=== PATIENT | male | born 1960 | race African-American/Black ===

== ENCOUNTER 2017-03-01 16:30 | Emergency (ER) | payer MEDICAID ==
[~2017-03-01] VITALS: Ht 182.9 cm; Wt 71.0 kg
[~2017-03-01 16:30] MED LIST: CARBAMAZEPINE
[2017-03-01] MEDS ORDERED: MORPHINE SULFATE 4 MG/ML CPJ (NOT FOR IM USE) IV STA (17:08)
[2017-03-01 17:15] VITALS: BP 122/70
[2017-03-01 17:51] LABS: BASOPHILS % 0.7 % (0.0-2.0); EOSINOPHILS % 2.7 % (0.0-5.0); HEMATOCRIT. 39.9 % (42.0-52.0); HEMOGLOBIN. 13.8 g/dL (14.0-18.0); LYMPHOCYTES % 37.7 % (20.0-50.0); MEAN CORPUSCULAR HEMOGLOBIN 29.5 pg (28.0-32.0); MEAN CORPUSCULAR VOLUME 85.3 fL (80.0-94.0); MEAN PLATELET VOLUME 9.2 fl (7.4-10.4); MONOCYTES % 7.9 % (2.0-8.0); PLATELET 277 x1000/uL (130-400); RED BLOOD CELL COUNT 4.68 mill/uL (4.7-6.1); RED CELL DISTRIBUTION WIDTH 14.4 % (11.6-14.6)
[2017-03-01 18:05] LABS: CARBON DIOXIDE 24 mEq/L (21-32); CHLORIDE 104 mEq/L (98-107)
[2017-03-01 18:07] LABS: TROPONIN I < 0.02 ng/mL (0.00-0.04)
== END 2017-03-01 18:37 | disposition left against medical advice (07) ==
LOC: ER 18:34
DX: R07.9 Chest pain, unspecified (principal); R06.02 Shortness of breath; H40.9 Unspecified glaucoma; F17.200 Nicotine dependence, unspecified, uncomplicated; F12.10 Cannabis abuse, uncomplicated; Z88.6 Allergy status to analgesic agent
CPT/HCPCS: 36415; 80053; 83880; 84484; 85025; 85610; 93005; 99285; 99406; Z7610; J2270

== ENCOUNTER 2019-01-14 12:14 | Emergency (ER) | payer MEDICAID, OTHER ==
[~2019-01-14] VITALS: Ht 182.9 cm; Wt 71.0 kg
[2019-01-14] MEDS ORDERED: MORPHINE SULFATE 4 MG/ML CPJ (NOT FOR IM USE) IV STA (13:02)
[2019-01-14] MEDS ORDERED: ONDANSETRON HCL 4MG/2ML INJ IV STA (13:02)
[2019-01-14] MEDS ORDERED: SODIUM CHLORIDE 0.9% 1,000 ML IV ONE (13:02)
[2019-01-14 13:33] LABS: BASOPHILS % 0.6 % (0.0-2.0); EOSINOPHILS % 0.9 % (0.0-5.0); HEMATOCRIT. 39.8 % (42.0-52.0); HEMOGLOBIN. 13.6 g/dL (14.0-18.0); LYMPHOCYTES % 18.9 % (20.0-50.0); MEAN CORPUSCULAR HEMOGLOBIN 30.3 pg (28.0-32.0); MEAN CORPUSCULAR VOLUME 88.3 fL (80.0-94.0); MEAN PLATELET VOLUME 8.4 fl (7.4-10.4); MONOCYTES % 8.2 % (2.0-8.0); NEUTROPHILS % 71.4 % (40.0-76.0); PLATELET 290 x1000/uL (130-400); RED BLOOD CELL COUNT 4.51 mill/uL (4.7-6.1); RED CELL DISTRIBUTION WIDTH 14.1 % (11.6-14.6)
[2019-01-14 13:40] LABS: CHLORIDE 106 mEq/L (98-107); PARTIAL THROMBOPLASTIN TIME 25.6 sec (23.4-31.0)
[2019-01-14 13:48] LABS: ETHANOL BLOOD < 10 mg/dL
[2019-01-14] MEDS ORDERED: IOHEXOL-300 100 ML BOTTLE ONE (15:16)
[2019-01-14 15:45] LABS: CLARITY URINE CLOUDY (CLEAR); COLOR URINE YELLOW (YELLOW); KETONES URINE NEGATIVE (NEGATIVE); LEUKOCYTE ESTERASE URINE NEGATIVE (NEGATIVE); NITRITE URINE NEGATIVE (NEGATIVE); OCCULT BLOOD URINE NEGATIVE (NEGATIVE); PH URINE 8.5 (4.5-8.0); PROTEIN URINE NEGATIVE (NEGATIVE); SPECIFIC GRAVITY URINE 1.014 (1.005-1.030); UROBILINOGEN URINE 0.2 E.U./dL (0.2-1.0)
[2019-01-14 16:04] LABS: *AMPHETAMINES SCREEN URINE PRESUMTIVE POSITIVE (NEGATIVE); *BARBITURATES SCREEN URINE NEGATIVE (NEGATIVE); *BENZODIAZEPINES SCREEN URINE NEGATIVE (NEGATIVE); *COCAINE SCREEN URINE PRESUMTIVE POSITIVE (NEGATIVE)
[2019-01-14 16:05] LABS: CANNABINOID URINE SCREEN PRESUMTIVE POSITIVE (NEGATIVE); METHADONE URINE SCREEN NEGATIVE (NEGATIVE); OPIATES URINE SCREEN NEGATIVE (NEGATIVE); PHENCYCLIDINE URINE SCREEN NEGATIVE (NEGATIVE)
[2019-01-14 21:15] VITALS: BP 138/73
== END 2019-01-14 21:14 | disposition short-term general hospital (02) ==
LOC: ER 12:14 → EDBEDREQ 17:46 → EDBEDREQTM 17:46 → ENRESERV 19:34 → ER 21:14 → CANBEDREQ 21:26
DX: R55 Syncope and collapse (principal); R10.9 Unspecified abdominal pain; F15.10 Other stimulant abuse, uncomplicated; F12.10 Cannabis abuse, uncomplicated; H40.9 Unspecified glaucoma; F17.210 Nicotine dependence, cigarettes, uncomplicated; H54.62 Unqualified visual loss, left eye, normal vision right eye; F14.10 Cocaine abuse, uncomplicated; Z85.07 Personal history of malignant neoplasm of pancreas; Z88.6 Allergy status to analgesic agent; S05 Injury of eye and orbit; X93.XXXS Assault by handgun discharge, sequela
CPT/HCPCS: 36415; 70450; 71045; 74177; 80053; 80305; 80320; 81003; 83690; 84484; 85025; 85610; 85730; 87086; 93005; 96361; 96374; 96375; 99285; J2270; J2405; J7030; Q9967; Z7610; G0480

== ENCOUNTER 2019-07-17 10:05 | Emergency (ER) | payer OTHER ==
[~2019-07-17] VITALS: Ht 180.3 cm; Wt 66.0 kg
[2019-07-17 12:57] LABS: BASOPHILS % 0.8 % (0.0-2.0); EOSINOPHILS % 1.5 % (0.0-5.0); HEMATOCRIT. 44.7 % (42.0-52.0); HEMOGLOBIN. 14.9 g/dL (14.0-18.0); LYMPHOCYTES % 22.3 % (20.0-50.0); MEAN CORPUSCULAR HEMOGLOBIN 29.4 pg (28.0-32.0); MEAN PLATELET VOLUME 8.7 fl (7.4-10.4); MONOCYTES % 11.9 % (2.0-8.0); NEUTROPHILS % 63.5 % (40.0-76.0); PLATELET 290 x1000/uL (130-400); RED BLOOD CELL COUNT 5.08 mill/uL (4.7-6.1); RED CELL DISTRIBUTION WIDTH 14.2 % (11.6-14.6)
[2019-07-17 13:18] LABS: CHLORIDE 109 mEq/L (98-107)
[2019-07-17 14:32] VITALS: BP 125/74
== END 2019-07-17 14:45 | disposition home or self-care (01) ==
LOC: ER 10:05
DX: R05 Cough (principal); R06.00 Dyspnea, unspecified; Z88.6 Allergy status to analgesic agent; H40.9 Unspecified glaucoma
CPT/HCPCS: 36415; 71045; 80053; 83880; 84484; 85025; 93005; 99284

== ENCOUNTER 2020-10-17 10:17 | Inpatient (IN) | payer MEDICAID, OTHER ==
[~2020-10-17] VITALS: Ht 185.4 cm; Wt 66.7 kg
[2020-10-17] MEDS ORDERED: NITROGLYCERIN OINT 1GM/INCH UDPKT TD ONE (11:15)
[2020-10-17] MEDS ORDERED: FUROSEMIDE 40MG/4ML VIAL IV ONE (11:15)
[2020-10-17 11:44] LABS: BASOPHILS % 0.8 % (0.0-2.0); EOSINOPHILS % 0.9 % (0.0-5.0); HEMATOCRIT. 42.7 % (42.0-52.0); HEMOGLOBIN. 13.9 g/dL (14.0-18.0); LYMPHOCYTES % 26.1 % (20.0-50.0); MEAN CORPUSCULAR HEMOGLOBIN 28.6 pg (28.0-32.0); MEAN CORPUSCULAR VOLUME 87.5 fL (80.0-94.0); MEAN PLATELET VOLUME 9.7 fl (7.4-10.4); MONOCYTES % 6.1 % (2.0-8.0); NEUTROPHILS % 66.1 % (40.0-76.0); PLATELET 298 x1000/uL (130-400); RED BLOOD CELL COUNT 4.87 mill/uL (4.7-6.1); RED CELL DISTRIBUTION WIDTH 15.3 % (11.6-14.6)
[2020-10-17 11:54] LABS: CHLORIDE 110 mEq/L (98-107)
[2020-10-17 11:58] LABS: INR 1.1; PROTHROMBIN TIME 12.1 sec (9.6-11.0)
[2020-10-17] MEDS ORDERED: AZITHROMYCIN 500 MG in DEXT 5% WATER 250 ML IV ONE (12:30)
[2020-10-17] MEDS ORDERED: CEFTRIAXONE 1 G PREMIX 50 ML IV ONE (12:30)
[2020-10-17] MEDS ORDERED: CLOPIDOGREL 75MG TABLET PO ONE (12:30)
[2020-10-17 15:02] LABS: CLARITY URINE CLEAR (CLEAR); COLOR URINE YELLOW (YELLOW); KETONES URINE NEGATIVE (NEGATIVE); LEUKOCYTE ESTERASE URINE NEGATIVE (NEGATIVE); NITRITE URINE NEGATIVE (NEGATIVE); OCCULT BLOOD URINE NEGATIVE (NEGATIVE); PROTEIN URINE NEGATIVE (NEGATIVE); SPECIFIC GRAVITY URINE 1.012 (1.005-1.030); UROBILINOGEN URINE 0.2 E.U./dL (0.2-1.0)
[2020-10-17 16:00] VITALS: BP 132/91
[2020-10-17] MEDS ORDERED: FURO-151 PO (16:38)
[2020-10-17 16:39] VITALS: BP 132/91
[2020-10-17] MEDS ORDERED: FAMO20TA8 MT (17:18)
[2020-10-17] MEDS ORDERED: PROT40 MT (17:18)
[2020-10-17] MEDS ORDERED: APIX5TAB PO (17:18)
[2020-10-17] MEDS ORDERED: METO37.5 MT (17:18)
[2020-10-17] MEDS: APIXABAN 5 MG TABLET PO SCH (18:42)
[2020-10-17 19:58] VITALS: BP 121/91
[2020-10-17 20:07] LABS: METHADONE URINE SCREEN NEGATIVE (NEGATIVE); OPIATES URINE SCREEN NEGATIVE (NEGATIVE); PHENCYCLIDINE URINE SCREEN NEGATIVE (NEGATIVE)
[2020-10-17 20:08] LABS: *AMPHETAMINES SCREEN URINE NEGATIVE (NEGATIVE); *BARBITURATES SCREEN URINE NEGATIVE (NEGATIVE); *BENZODIAZEPINES SCREEN URINE NEGATIVE (NEGATIVE); *COCAINE SCREEN URINE PRESUMTIVE POSITIVE (NEGATIVE); CANNABINOID URINE SCREEN NEGATIVE (NEGATIVE)
[2020-10-17] MEDS: CARVEDILOL 3.125 MG TABLET PO SCH (20:10)
[2020-10-17] MEDS ORDERED: GUAIFENESIN 200MG/10ML SUGAR FREE UDC PO PRN (22:30)
[2020-10-18] VITALS (7 sets, daily range): BP systolic 83–120; BP diastolic 60–89
[2020-10-18] MEDS: ALBUTEROL 6.7GM HFA INHALER ORI SCH ×4 (02:22→18:23)
[2020-10-18] MEDS: FUROSEMIDE 40MG/4ML VIAL IVP SCH ×2 (06:15→18:23)
[2020-10-18] MEDS ORDERED: AZITHROMYCIN 500 MG in DEXT 5% WATER 250 ML IV SCH (09:00)
[2020-10-18] MEDS: CARVEDILOL 3.125 MG TABLET PO SCH ×2 (09:00→21:00)
[2020-10-18] MEDS: LISINOPRIL 20MG TABLET PO SCH (09:00)
[2020-10-18] MEDS: PANTOPRAZOLE SODIUM 40 MG/VIAL IV SCH (09:14)
[2020-10-18] MEDS: APIXABAN 5 MG TABLET PO SCH ×2 (09:15→18:23)
[2020-10-18] MEDS ORDERED: ONDANSETRON HCL 4MG/2ML INJ IV PRN (11:00)
[2020-10-18] MEDS ORDERED: DEXAMETHASONE 4MG TABLET PO SCH (12:00)
[2020-10-18] MEDS: PREDNISONE 20MG TABLET PO SCH (13:17)
[2020-10-19] VITALS: BP 106/68
[2020-10-19] MEDS: ALBUTEROL 6.7GM HFA INHALER ORI SCH ×2 (00:54→05:52)
[2020-10-19 04:00] VITALS: BP 95/67
[2020-10-19] MEDS: FUROSEMIDE 40MG/4ML VIAL IVP SCH (07:04)
[2020-10-19 08:00] VITALS: BP 121/69
[2020-10-19] MEDS: APIXABAN 5 MG TABLET PO SCH (09:04)
[2020-10-19] MEDS: PREDNISONE 20MG TABLET PO SCH (09:04)
[2020-10-19] MEDS: PANTOPRAZOLE SODIUM 40 MG/VIAL IV SCH (09:05)
[2020-10-19] MEDS: CARVEDILOL 3.125 MG TABLET PO SCH (09:05)
[2020-10-19] MEDS: LISINOPRIL 20MG TABLET PO SCH (09:05)
[2020-10-19] MEDS ORDERED: IPRATROPIUM/ALBUTEROL 0.5-3(2.5)MG/3ML NEB HHN PRN (11:00)
[2020-10-19] MEDS ORDERED: COR3 PO (11:41)
[2020-10-19] MEDS ORDERED: POTA20TA82 MT (11:41)
[2020-10-19] MEDS ORDERED: LOSA25TA26 MT (11:41)
[2020-10-19] MEDS ORDERED: FURO-151 MT (11:41)
[2020-10-19 12:00] VITALS: BP 118/72
[2020-10-19 12:38] VITALS: BP 121/69
== END 2020-10-19 15:06 | disposition home or self-care (01) | DRG 816 ==
LOC: ER 10:27 → 7WST 14:12 → ENRESERV 14:46 → 6WST 10-18 23:13
PROVIDERS: ADMIT Internal Medicine; ATTEND Internal Medicine
DX: T40.5X1A Poisoning by cocaine, accidental (unintentional), initial encounter (principal); U07.1 COVID-19; J96.00 Acute respiratory failure, unspecified whether with hypoxia or hypercapnia; I50.43 Acute on chronic combined systolic (congestive) and diastolic (congestive) heart failure; J68.0 Bronchitis and pneumonitis due to chemicals, gases, fumes and vapors; E87.8 Other disorders of electrolyte and fluid balance, not elsewhere classified; K76.1 Chronic passive congestion of liver; E44.0 Moderate protein-calorie malnutrition; I11.0 Hypertensive heart disease with heart failure; F14.90 Cocaine use, unspecified, uncomplicated; F17.210 Nicotine dependence, cigarettes, uncomplicated; R74.01 Elevation of levels of liver transaminase levels; Z86.16 Personal history of COVID-19; Z88.6 Allergy status to analgesic agent; Z91.14 Patient's other noncompliance with medication regimen; Z79.899 Other long term (current) drug therapy; Z71.51 Drug abuse counseling and surveillance of drug abuser; Z71.6 Tobacco abuse counseling; Z68.1 Body mass index [BMI] 19.9 or less, adult; Y92.89 Other specified places as the place of occurrence of the external cause; H40.9 Unspecified glaucoma
CPT/HCPCS: 36415; 71045; 80053; 80305; 81003; 83605; 83880; 84484; 85025; 87426; 93005; 93306; 93970; 99285; C9113; J0456; J0696; J1940; J2405; J7040; J7060; J7512; U0003; A4315

== ENCOUNTER 2020-11-04 05:46 | Inpatient (IN) | payer MEDICAID ==
[~2020-11-04] VITALS: Ht 185.4 cm; Wt 68.0 kg
[~2020-11-04 05:46] MED LIST changes: +APIX5TAB PO; +COR3 PO; +FAMO20TA8 MT; +FURO-151 MT; +FURO-151 PO; +LOSA25TA26 MT; +POTA20TA82 MT; +PROT40 MT
[2020-11-04] MEDS ORDERED: NITROGLYCERIN OINT 1GM/INCH UDPKT TD ONE (06:15)
[2020-11-04] MEDS ORDERED: FUROSEMIDE 40MG/4ML VIAL IV ONE (06:15)
[2020-11-04 06:24] LABS: EOSINOPHILS % 2.6 % (0.0-5.0); HEMATOCRIT. 42.6 % (42.0-52.0); HEMOGLOBIN. 14.2 g/dL (14.0-18.0); LYMPHOCYTES % 31.1 % (20.0-50.0); MEAN CORPUSCULAR HEMOGLOBIN 28.4 pg (28.0-32.0); MEAN CORPUSCULAR VOLUME 85.3 fL (80.0-94.0); MEAN PLATELET VOLUME 9.2 fl (7.4-10.4); MONOCYTES % 4.4 % (2.0-8.0); NEUTROPHILS % 60.9 % (40.0-76.0); PLATELET 349 x1000/uL (130-400); RED CELL DISTRIBUTION WIDTH 15.6 % (11.6-14.6)
[2020-11-04 06:29] LABS: CHLORIDE 110 mEq/L (98-107)
[2020-11-04 07:19] LABS: CLARITY URINE CLEAR (CLEAR); COLOR URINE YELLOW (YELLOW); KETONES URINE NEGATIVE (NEGATIVE); LEUKOCYTE ESTERASE URINE TRACE (NEGATIVE); NITRITE URINE NEGATIVE (NEGATIVE); OCCULT BLOOD URINE 2+ (NEGATIVE); PH URINE 5.5 (4.5-8.0); PROTEIN URINE 1+ (NEGATIVE); SPECIFIC GRAVITY URINE 1.021 (1.005-1.030); UROBILINOGEN URINE 0.2 E.U./dL (0.2-1.0)
[2020-11-04 07:41] LABS: *AMPHETAMINES SCREEN URINE NEGATIVE (NEGATIVE); *BARBITURATES SCREEN URINE NEGATIVE (NEGATIVE); *BENZODIAZEPINES SCREEN URINE NEGATIVE (NEGATIVE); *COCAINE SCREEN URINE PRESUMTIVE POSITIVE (NEGATIVE); CANNABINOID URINE SCREEN PRESUMTIVE POSITIVE (NEGATIVE); PHENCYCLIDINE URINE SCREEN NEGATIVE (NEGATIVE)
[2020-11-04 07:42] LABS: METHADONE URINE SCREEN NEGATIVE (NEGATIVE); OPIATES URINE SCREEN NEGATIVE (NEGATIVE)
[2020-11-04] MEDS ORDERED: AZITHROMYCIN 500 MG in DEXT 5% WATER 250 ML IV SCH (12:15)
[2020-11-04] MEDS ORDERED: ONDANSETRON HCL 4MG/2ML INJ IV PRN (12:30)
[2020-11-04] MEDS ORDERED: BUDESONIDE 0.5MG/2ML NEB HHN SCH (12:30)
[2020-11-04] MEDS: CEFTRIAXONE 1 G PREMIX 50 ML IV ONE ×2 (12:40→14:22)
[2020-11-04 17:45] VITALS: BP 113/77
[2020-11-04] MEDS ORDERED: IPRATROPIUM/ALBUTEROL 0.5-3(2.5)MG/3ML NEB HHN SCH ×2 (18:00)
[2020-11-04] MEDS: FUROSEMIDE 40MG/4ML VIAL IVP SCH (19:49)
[2020-11-04 20:00] VITALS: BP_SYST 120; BP_SYST 158; BP_DIAS 86; BP_DIAS 88
[2020-11-04] MEDS ORDERED: TRAMADOL 50MG TABLET PO PRN (20:29)
[2020-11-04] MEDS ORDERED: GUAIFENESIN/CODEINE 200-20MG/10ML UDC PO PRN (20:29)
[2020-11-05] VITALS: BP 120/93
[2020-11-05] MEDS ORDERED: ALBUTEROL 6.7GM HFA INHALER ORI PRN (01:00)
[2020-11-05 04:00] VITALS: BP 126/78
[2020-11-05] MEDS: FUROSEMIDE 40MG/4ML VIAL IVP SCH ×2 (06:28→16:44)
[2020-11-05 08:00] VITALS: BP 108/79
[2020-11-05] MEDS: LOSARTAN POTASSIUM 25 MG TABLET PO SCH (09:00)
[2020-11-05 12:00] VITALS: BP 103/85
[2020-11-05 13:02] LABS: CHLORIDE 106 mEq/L (98-107)
[2020-11-05] MEDS: PREDNISONE 20MG TABLET PO SCH (13:31)
[2020-11-05 16:00] VITALS: BP 109/83
[2020-11-05 20:00] VITALS: BP 110/70
[2020-11-05] MEDS ORDERED: IOHEXOL-350 100 ML BOTTLE ONE (22:29)
[2020-11-06 00:05] VITALS: BP 118/69
[2020-11-06 04:08] VITALS: BP 159/73
[2020-11-06] MEDS: FUROSEMIDE 40MG/4ML VIAL IVP SCH ×2 (06:28→16:19)
[2020-11-06 07:24] LABS: CHLORIDE 104 mEq/L (98-107)
[2020-11-06 07:27] LABS: BASOPHILS % 0.2 % (0.0-2.0); EOSINOPHILS % 0.1 % (0.0-5.0); HEMATOCRIT. 37.8 % (42.0-52.0); HEMOGLOBIN. 12.8 g/dL (14.0-18.0); LYMPHOCYTES % 9.5 % (20.0-50.0); MEAN CORPUSCULAR HEMOGLOBIN 28.2 pg (28.0-32.0); MEAN CORPUSCULAR VOLUME 83.1 fL (80.0-94.0); MEAN PLATELET VOLUME 9.2 fl (7.4-10.4); NEUTROPHILS % 86.2 % (40.0-76.0); PLATELET 354 x1000/uL (130-400); RED BLOOD CELL COUNT 4.55 mill/uL (4.7-6.1); RED CELL DISTRIBUTION WIDTH 15.2 % (11.6-14.6)
[2020-11-06 08:00] VITALS: BP 102/76
[2020-11-06] MEDS: LOSARTAN POTASSIUM 25 MG TABLET PO SCH (08:53)
[2020-11-06] MEDS: PREDNISONE 20MG TABLET PO SCH (09:23)
[2020-11-06 11:59] VITALS: BP 101/72
[2020-11-06] MEDS ORDERED: IPRA3AMP9 NEB (14:49)
[2020-11-06] MEDS ORDERED: ALBU18HF2 IH (14:49)
[2020-11-06] MEDS ORDERED: LOSA25TA26 MT (14:49)
[2020-11-06] MEDS ORDERED: POTA20TA82 MT (14:49)
[2020-11-06] MEDS ORDERED: COR3 PO (14:49)
[2020-11-06] MEDS ORDERED: FURO-151 MT (14:49)
[2020-11-06] MEDS ORDERED: FLUT1DIS3 INH (14:49)
[2020-11-06 16:00] VITALS: BP 110/79
[2020-11-06 20:00] VITALS: BP 110/71
[2020-11-07] VITALS: BP 118/72
[2020-11-07 04:00] VITALS: BP 112/81
[2020-11-07] MEDS: FUROSEMIDE 40MG/4ML VIAL IVP SCH (07:12)
[2020-11-07 07:58] VITALS: BP 118/69
[2020-11-07 08:00] VITALS: BP 108/66
[2020-11-07] MEDS: LOSARTAN POTASSIUM 25 MG TABLET PO SCH (08:14)
[2020-11-07 12:00] VITALS: BP 118/69
== END 2020-11-07 13:27 | disposition home or self-care (01) | DRG 816 ==
LOC: ER 05:59 → 7WST 12:08 → ENRESERV 15:51
PROVIDERS: ADMIT Internal Medicine; ATTEND Internal Medicine
DX: T40.5X1A Poisoning by cocaine, accidental (unintentional), initial encounter (principal); J96.00 Acute respiratory failure, unspecified whether with hypoxia or hypercapnia; I50.23 Acute on chronic systolic (congestive) heart failure; E44.0 Moderate protein-calorie malnutrition; I11.0 Hypertensive heart disease with heart failure; E87.8 Other disorders of electrolyte and fluid balance, not elsewhere classified; J68.0 Bronchitis and pneumonitis due to chemicals, gases, fumes and vapors; I27.20 Pulmonary hypertension, unspecified; I42.9 Cardiomyopathy, unspecified; F14.10 Cocaine abuse, uncomplicated; R74.01 Elevation of levels of liver transaminase levels; F12.10 Cannabis abuse, uncomplicated; F17.210 Nicotine dependence, cigarettes, uncomplicated; Z91.19 Patient's noncompliance with other medical treatment and regimen; Z88.8 Allergy status to other drugs, medicaments and biological substances; Z79.899 Other long term (current) drug therapy; Z71.6 Tobacco abuse counseling; Z71.51 Drug abuse counseling and surveillance of drug abuser; Z86.16 Personal history of COVID-19
CPT/HCPCS: 36415; 71045; 71275; 80048; 80053; 80305; 81003; 83735; 83880; 84484; 85025; 85379; 93005; 99285; J0456; J1940; J7060; J7512; J7626; Q9967; U0003

== ENCOUNTER 2020-11-16 22:26 | Emergency (ER) | payer MEDICAID ==
[~2020-11-16] VITALS: Ht 177.8 cm; Wt 62.0 kg
[~2020-11-16 22:26] MED LIST changes: +ALBU18HF2 IH; -CARBAMAZEPINE; -FAMO20TA8 MT; +FLUT1DIS3 INH; -FURO-151 PO; +IPRA3AMP9 NEB
[2020-11-16 22:39] VITALS: BP 106/72
== END 2020-11-17 00:51 | disposition left against medical advice (07) ==
LOC: ER 22:26
DX: R07.89 Other chest pain (principal); R05 Cough; Z53.21 Procedure and treatment not carried out due to patient leaving prior to being seen by health care provider
CPT/HCPCS: 93005

== ENCOUNTER 2020-12-03 18:44 | Inpatient (IN) | payer MEDICAID ==
[~2020-12-03] VITALS: Ht 172.7 cm; Wt 63.0 kg
[2020-12-03 19:33] LABS: BASOPHILS % 0.4 % (0.0-2.0); EOSINOPHILS % 0.4 % (0.0-5.0); HEMATOCRIT. 38.5 % (42.0-52.0); HEMOGLOBIN. 12.6 g/dL (14.0-18.0); LYMPHOCYTES % 16.9 % (20.0-50.0); MEAN CORPUSCULAR VOLUME 82.5 fL (80.0-94.0); MONOCYTES % 5.8 % (2.0-8.0); NEUTROPHILS % 76.5 % (40.0-76.0); PLATELET 303 x1000/uL (130-400); RED BLOOD CELL COUNT 4.67 mill/uL (4.7-6.1); RED CELL DISTRIBUTION WIDTH 16.8 % (11.6-14.6)
[2020-12-03 19:37] LABS: BG BASE EXCESS -0.4 mmol/L (-2.0-2.0); BG DEOXYHEMOGLOBIN 3.1 % (0.0-5.0); BG FRACTION INSPIRED OXYGEN 21; BG HCO3 ACT 21.1 mmol/L (22.0-26.0); BG METHEMOGLOBIN 0.3 % (0.0-1.5); BG OXYGEN SATURATION 96.9 % (92.0-98.5); BG OXYHEMOGLOBIN 96.6 % (94.0-97.0); BG PCO2 26.3 mmHg (35.0-45.0); BG PH 7.522 (7.350-7.450); BG PO2 90.6 mmHg (75.0-100.0); BG SAMPLE SITE RIGHT RADIAL; BG VENT MODE ROOM AIR
[2020-12-03 19:39] LABS: CHLORIDE 105 mEq/L (98-107)
[2020-12-03 19:43] LABS: ETHANOL BLOOD < 10 mg/dL
[2020-12-03 19:47] LABS: CREATINE KINASE 90 IU/L (39-308); INR 1.4; PROTHROMBIN TIME 14.3 sec (9.6-11.0)
[2020-12-03] MEDS ORDERED: PIPERACILLIN/TAZOBACTAM 3.375GM/50ML PREMIX IV ONE (22:00)
[2020-12-03] MEDS ORDERED: PIPERACILLIN/TAZOBACTAM 3.375 G in DEXT 5% WATER 100 ML IV SCH (22:00)
[2020-12-03] MEDS ORDERED: VANCOMYCIN 1 G PREMIX 200 ML IV SCH (22:00)
[2020-12-03] MEDS ORDERED: FUROSEMIDE 40MG/4ML VIAL IVP ONE (22:00)
[2020-12-03 22:44] LABS: CLARITY URINE TURBID (CLEAR); COLOR URINE DARK YELLOW (YELLOW); KETONES URINE NEGATIVE (NEGATIVE); LEUKOCYTE ESTERASE URINE TRACE (NEGATIVE); NITRITE URINE NEGATIVE (NEGATIVE); OCCULT BLOOD URINE 3+ (NEGATIVE); PROTEIN URINE 2+ (NEGATIVE); UROBILINOGEN URINE 0.2 E.U./dL (0.2-1.0)
[2020-12-03 22:56] LABS: *AMPHETAMINES SCREEN URINE NEGATIVE (NEGATIVE); *BARBITURATES SCREEN URINE NEGATIVE (NEGATIVE); *BENZODIAZEPINES SCREEN URINE NEGATIVE (NEGATIVE)
[2020-12-03 22:57] LABS: *COCAINE SCREEN URINE NEGATIVE (NEGATIVE); CANNABINOID URINE SCREEN NEGATIVE (NEGATIVE); METHADONE URINE SCREEN NEGATIVE (NEGATIVE); OPIATES URINE SCREEN PRESUMTIVE POSITIVE (NEGATIVE); PHENCYCLIDINE URINE SCREEN NEGATIVE (NEGATIVE)
[2020-12-03] MEDS ORDERED: MORPHINE SULFATE 4 MG/ML CPJ (NOT FOR IM USE) IV ONE (23:30)
[2020-12-04] VITALS (7 sets, daily range): BP systolic 96–125; BP diastolic 71–80
[2020-12-04] MEDS ORDERED: ACETAMINOPHEN 325MG TABLET PO PRN (03:00)
[2020-12-04] MEDS ORDERED: PIPERACILLIN/TAZOBACTAM 3.375 G/VIAL IV SCH (06:00)
[2020-12-04] MEDS: PIPERACILLIN/TAZOBACTAM 3.375 G in DEXT 5% WATER 100 ML IV SCH ×2 (07:44→17:02)
[2020-12-04] MEDS: PANTOPRAZOLE 40MG DR TABLET PO SCH (07:44)
[2020-12-04] MEDS: LOSARTAN POTASSIUM 25 MG TABLET PO SCH (08:16)
[2020-12-04] MEDS: POTASSIUM CHLORIDE 20MEQ TABLET SR PO SCH (08:17)
[2020-12-04] MEDS: APIXABAN 5 MG TABLET PO SCH ×2 (08:17→17:03)
[2020-12-04] MEDS: CARVEDILOL 3.125 MG TABLET PO SCH ×2 (08:17→21:00)
[2020-12-04] MEDS ORDERED: APIXABAN 5 MG TABLET PO SCH (09:00)
[2020-12-04] MEDS ORDERED: FUROSEMIDE 40MG TABLET PO SCH (09:00)
[2020-12-04 10:07] LABS: CHLORIDE 101 mEq/L (98-107)
[2020-12-04 10:11] LABS: BASOPHILS % 0.3 % (0.0-2.0); EOSINOPHILS % 0.6 % (0.0-5.0); HEMATOCRIT. 36.3 % (42.0-52.0); HEMOGLOBIN. 12.2 g/dL (14.0-18.0); LYMPHOCYTES % 20.1 % (20.0-50.0); MEAN CORPUSCULAR HEMOGLOBIN 27.7 pg (28.0-32.0); MEAN CORPUSCULAR VOLUME 82.1 fL (80.0-94.0); MEAN PLATELET VOLUME 9.4 fl (7.4-10.4); MONOCYTES % 2.6 % (2.0-8.0); NEUTROPHILS % 76.4 % (40.0-76.0); PLATELET 255 x1000/uL (130-400); RED BLOOD CELL COUNT 4.42 mill/uL (4.7-6.1); RED CELL DISTRIBUTION WIDTH 16.9 % (11.6-14.6)
[2020-12-04] MEDS ORDERED: VANCOMYCIN 1500MG in DEXTROSE 5% WATER 250ML IV SCH (11:00)
[2020-12-04] MEDS: VANCOMYCIN 1250MG in DEXTROSE 5% WATER 250ML IV SCH (11:12)
[2020-12-04] MEDS: HYDROCODONE/ACETAMINOPHEN 5/325MG TABLET PO PRN (12:21)
[2020-12-04] MEDS ORDERED: ALBUTEROL 6.7GM HFA INHALER ORI PRN (14:00)
[2020-12-04] MEDS: METHYLPREDNISOLONE SOD SUCC 40 MG/ML VIAL IV SCH ×2 (14:29→21:58)
[2020-12-04] MEDS: FUROSEMIDE 40MG/4ML VIAL IVP SCH (17:03)
[2020-12-04] MEDS ORDERED: KETOROLAC 15MG/ML VIAL IV PRN (21:15)
[2020-12-04] MEDS ORDERED: MORPHINE SULFATE 2 MG/ML CPJ (NOT FOR IM USE) IV PRN (21:45)
[2020-12-05] VITALS: BP 97/73
[2020-12-05] MEDS: PIPERACILLIN/TAZOBACTAM 3.375 G in DEXT 5% WATER 100 ML IV SCH ×3 (00:33→16:22)
[2020-12-05 04:00] VITALS: BP 96/72
[2020-12-05] MEDS: PANTOPRAZOLE 40MG DR TABLET PO SCH (06:16)
[2020-12-05] MEDS: FUROSEMIDE 40MG/4ML VIAL IVP SCH ×2 (06:16→17:33)
[2020-12-05] MEDS: METHYLPREDNISOLONE SOD SUCC 40 MG/ML VIAL IV SCH ×3 (06:17→21:31)
[2020-12-05 08:00] VITALS: BP 91/58
[2020-12-05] MEDS: CARVEDILOL 3.125 MG TABLET PO SCH ×2 (08:49→21:00)
[2020-12-05] MEDS: APIXABAN 5 MG TABLET PO SCH ×2 (08:49→17:33)
[2020-12-05] MEDS: LOSARTAN POTASSIUM 25 MG TABLET PO SCH (08:49)
[2020-12-05] MEDS: POTASSIUM CHLORIDE 20MEQ TABLET SR PO SCH (08:49)
[2020-12-05] MEDS: VANCOMYCIN 1250MG in DEXTROSE 5% WATER 250ML IV SCH (11:09)
[2020-12-05 12:00] VITALS: BP 118/8
[2020-12-05] MEDS ORDERED: TRAMADOL 50MG TABLET PO PRN (12:30)
[2020-12-05 16:00] VITALS: BP 97/70
[2020-12-05 20:00] VITALS: BP 95/61
[2020-12-05] MEDS: ZOLPIDEM TARTRATE 5MG TABLET PO PRN (22:35)
[2020-12-06] VITALS: BP 99/63
[2020-12-06 04:00] VITALS: BP 114/88
[2020-12-06] MEDS: FUROSEMIDE 40MG/4ML VIAL IVP SCH ×2 (06:44→16:44)
[2020-12-06] MEDS: PANTOPRAZOLE 40MG DR TABLET PO SCH (06:44)
[2020-12-06] MEDS: METHYLPREDNISOLONE SOD SUCC 40 MG/ML VIAL IV SCH (06:44)
[2020-12-06] MEDS: HYDROCODONE/ACETAMINOPHEN 5/325MG TABLET PO PRN (06:46)
[2020-12-06 08:00] VITALS: BP 109/69
[2020-12-06] MEDS: PIPERACILLIN/TAZOBACTAM 3.375 G in DEXT 5% WATER 100 ML IV SCH ×3 (08:47→16:44)
[2020-12-06] MEDS: CARVEDILOL 3.125 MG TABLET PO SCH ×2 (08:47→21:00)
[2020-12-06] MEDS: POTASSIUM CHLORIDE 20MEQ TABLET SR PO SCH (08:47)
[2020-12-06] MEDS: APIXABAN 5 MG TABLET PO SCH ×2 (08:47→16:44)
[2020-12-06] MEDS: LOSARTAN POTASSIUM 25 MG TABLET PO SCH (08:48)
[2020-12-06] MEDS: TAMSULOSIN HCL 0.4MG SR CAPSULE PO SCH (11:52)
[2020-12-06 12:00] VITALS: BP 121/72
[2020-12-06 16:30] VITALS: BP 108/87
[2020-12-06 20:00] VITALS: BP 102/76
[2020-12-06] MEDS: ZOLPIDEM TARTRATE 5MG TABLET PO PRN (21:10)
[2020-12-07] VITALS: BP 105/75
[2020-12-07] MEDS: PIPERACILLIN/TAZOBACTAM 3.375 G in DEXT 5% WATER 100 ML IV SCH ×3 (00:11→16:47)
[2020-12-07 04:00] VITALS: BP 102/71
[2020-12-07] MEDS: FUROSEMIDE 40MG/4ML VIAL IVP SCH ×2 (07:08→16:47)
[2020-12-07] MEDS: FAMOTIDINE 20MG TABLET PO SCH (07:09)
[2020-12-07 08:20] VITALS: BP 118/92
[2020-12-07] MEDS ORDERED: DEXTROSE 50% WATER 50ML SYRINGE IV PRN (09:15)
[2020-12-07] MEDS: CARVEDILOL 3.125 MG TABLET PO SCH ×2 (10:28→21:00)
[2020-12-07] MEDS: POTASSIUM CHLORIDE 20MEQ TABLET SR PO SCH (10:29)
[2020-12-07] MEDS: APIXABAN 5 MG TABLET PO SCH ×2 (10:29→16:47)
[2020-12-07] MEDS: TAMSULOSIN HCL 0.4MG SR CAPSULE PO SCH (10:29)
[2020-12-07] MEDS: LOSARTAN POTASSIUM 25 MG TABLET PO SCH (10:29)
[2020-12-07] MEDS: PREDNISONE 20MG TABLET PO SCH (10:29)
[2020-12-07 12:00] VITALS: BP 115/82
[2020-12-07] MEDS: BLOOD SUGAR DIAGNOSTIC STRIP TEST SCH ×3 (12:40→21:03)
[2020-12-07] MEDS: INSULIN LISPRO 100 UNITS/ML SUBCUT SCH ×3 (12:48→21:03)
[2020-12-07 16:20] VITALS: BP 109/68
[2020-12-07 17:52] LABS: HEMATOCRIT. 35.7 % (42.0-52.0); HEMOGLOBIN. 11.9 g/dL (14.0-18.0); MEAN CORPUSCULAR HEMOGLOBIN 27.4 pg (28.0-32.0); MEAN CORPUSCULAR VOLUME 82.4 fL (80.0-94.0); MEAN PLATELET VOLUME 9.7 fl (7.4-10.4); PLATELET 201 x1000/uL (130-400); RED BLOOD CELL COUNT 4.34 mill/uL (4.7-6.1)
[2020-12-07 18:00] LABS: CHLORIDE 102 mEq/L (98-107)
[2020-12-07 18:20] LABS: PLATELET ESTIMATE NORMAL
[2020-12-07 20:00] VITALS: BP 107/74
[2020-12-08] VITALS: BP 109/74
[2020-12-08] MEDS: PIPERACILLIN/TAZOBACTAM 3.375 G in DEXT 5% WATER 100 ML IV SCH ×4 (00:28→23:13)
[2020-12-08] MEDS: HYDROCODONE/ACETAMINOPHEN 5/325MG TABLET PO PRN (00:51)
[2020-12-08 04:00] VITALS: BP 109/75
[2020-12-08] MEDS: FUROSEMIDE 40MG/4ML VIAL IVP SCH ×2 (06:23→17:26)
[2020-12-08] MEDS: FAMOTIDINE 20MG TABLET PO SCH (06:23)
[2020-12-08] MEDS: BLOOD SUGAR DIAGNOSTIC STRIP TEST SCH ×4 (06:23→20:21)
[2020-12-08] MEDS: INSULIN LISPRO 100 UNITS/ML SUBCUT SCH ×4 (06:24→20:21)
[2020-12-08 08:20] VITALS: BP 111/81
[2020-12-08] MEDS: PREDNISONE 20MG TABLET PO SCH (09:01)
[2020-12-08] MEDS: APIXABAN 5 MG TABLET PO SCH ×2 (09:02→17:26)
[2020-12-08] MEDS: LOSARTAN POTASSIUM 25 MG TABLET PO SCH (09:02)
[2020-12-08] MEDS: TAMSULOSIN HCL 0.4MG SR CAPSULE PO SCH (09:02)
[2020-12-08] MEDS: CARVEDILOL 3.125 MG TABLET PO SCH ×2 (09:02→20:20)
[2020-12-08] MEDS: POTASSIUM CHLORIDE 20MEQ TABLET SR PO SCH (09:02)
[2020-12-08 12:00] VITALS: BP 101/71
[2020-12-08] MEDS: IPRATROPIUM/ALBUTEROL 0.5-3(2.5)MG/3ML NEB HHN PRN (12:21)
[2020-12-08 16:00] VITALS: BP 110/76
[2020-12-08 20:00] VITALS: BP 96/62
[2020-12-09] VITALS: BP 98/62
[2020-12-09 04:00] VITALS: BP 98/66
[2020-12-09 05:10] LABS: CHLORIDE 101 mEq/L (98-107)
[2020-12-09 06:14] LABS: HEMATOCRIT. 33.1 % (42.0-52.0); MEAN CORPUSCULAR HEMOGLOBIN 27.2 pg (28.0-32.0); MEAN CORPUSCULAR VOLUME 81.9 fL (80.0-94.0); MEAN PLATELET VOLUME 10.3 fl (7.4-10.4); PLATELET 172 x1000/uL (130-400); RED BLOOD CELL COUNT 4.04 mill/uL (4.7-6.1); RED CELL DISTRIBUTION WIDTH 17.1 % (11.6-14.6)
[2020-12-09] MEDS: INSULIN LISPRO 100 UNITS/ML SUBCUT SCH ×4 (06:22→21:00)
[2020-12-09] MEDS: FAMOTIDINE 20MG TABLET PO SCH (06:22)
[2020-12-09] MEDS: BLOOD SUGAR DIAGNOSTIC STRIP TEST SCH ×4 (06:22→21:28)
[2020-12-09] MEDS: FUROSEMIDE 40MG/4ML VIAL IVP SCH ×2 (06:22→16:27)
[2020-12-09 08:00] VITALS: BP 101/66
[2020-12-09] MEDS: CARVEDILOL 3.125 MG TABLET PO SCH ×2 (08:47→21:28)
[2020-12-09] MEDS: LOSARTAN POTASSIUM 25 MG TABLET PO SCH (08:48)
[2020-12-09] MEDS: PIPERACILLIN/TAZOBACTAM 3.375 G in DEXT 5% WATER 100 ML IV SCH (08:58)
[2020-12-09] MEDS: APIXABAN 5 MG TABLET PO SCH ×2 (08:58→16:27)
[2020-12-09] MEDS: POTASSIUM CHLORIDE 20MEQ TABLET SR PO SCH (08:58)
[2020-12-09] MEDS: TAMSULOSIN HCL 0.4MG SR CAPSULE PO SCH (08:59)
[2020-12-09] MEDS: PREDNISONE 20MG TABLET PO SCH (08:59)
[2020-12-09 12:00] VITALS: BP 108/64
[2020-12-09 14:16] LABS: ATYPICAL LYMPHOCYTES 1; PLATELET ESTIMATE NORMAL
[2020-12-09 16:00] VITALS: BP 110/73
[2020-12-09] MEDS ORDERED: INSULIN GLARGINE UD 100 UNITS/ML SYR SUBCUT NR (16:30)
[2020-12-09 20:00] VITALS: BP 100/67
[2020-12-10] VITALS: BP 105/74
[2020-12-10 04:00] VITALS: BP 117/77
[2020-12-10] MEDS: BLOOD SUGAR DIAGNOSTIC STRIP TEST SCH ×4 (06:25→20:14)
[2020-12-10] MEDS: INSULIN LISPRO 100 UNITS/ML SUBCUT SCH ×4 (06:25→20:14)
[2020-12-10] MEDS: FUROSEMIDE 40MG/4ML VIAL IVP SCH ×2 (06:25→17:40)
[2020-12-10] MEDS: FAMOTIDINE 20MG TABLET PO SCH (06:25)
[2020-12-10 06:37] LABS: BASOPHILS % 0.1 % (0.0-2.0); EOSINOPHILS % 0.3 % (0.0-5.0); HEMATOCRIT. 35.3 % (42.0-52.0); HEMOGLOBIN. 11.7 g/dL (14.0-18.0); LYMPHOCYTES % 7.4 % (20.0-50.0); MEAN CORPUSCULAR HEMOGLOBIN 27.3 pg (28.0-32.0); MEAN CORPUSCULAR VOLUME 82.1 fL (80.0-94.0); MEAN PLATELET VOLUME 10.3 fl (7.4-10.4); NEUTROPHILS % 88.2 % (40.0-76.0); PLATELET 191 x1000/uL (130-400); RED CELL DISTRIBUTION WIDTH 17.1 % (11.6-14.6)
[2020-12-10 07:15] LABS: CHLORIDE 101 mEq/L (98-107)
[2020-12-10 08:00] VITALS: BP 103/81
[2020-12-10] MEDS: IPRATROPIUM/ALBUTEROL 0.5-3(2.5)MG/3ML NEB HHN PRN ×3 (08:06→21:15)
[2020-12-10] MEDS: LOSARTAN POTASSIUM 25 MG TABLET PO SCH (09:00)
[2020-12-10] MEDS: CARVEDILOL 3.125 MG TABLET PO SCH ×2 (09:00→20:14)
[2020-12-10] MEDS: TAMSULOSIN HCL 0.4MG SR CAPSULE PO SCH (09:05)
[2020-12-10] MEDS: POTASSIUM CHLORIDE 20MEQ TABLET SR PO SCH (09:05)
[2020-12-10] MEDS: APIXABAN 5 MG TABLET PO SCH ×2 (09:06→17:40)
[2020-12-10 12:00] VITALS: BP 96/66
[2020-12-10] MEDS ORDERED: LORAZEPAM 2MG/ML CPJ IV PRN (13:45)
[2020-12-10] MEDS: HYDROCODONE/ACETAMINOPHEN 5/325MG TABLET PO PRN ×2 (13:50→23:20)
[2020-12-10 16:00] VITALS: BP 112/85
[2020-12-10 20:00] VITALS: BP 105/77
[2020-12-10] MEDS: ZOLPIDEM TARTRATE 5MG TABLET PO PRN (20:14)
[2020-12-10] MEDS ORDERED: HYDROCODONE/ACETAMINOPHEN 5/325MG TABLET PO PRN (23:15)
[2020-12-11] VITALS: BP 115/90
[2020-12-11] MEDS: IPRATROPIUM/ALBUTEROL 0.5-3(2.5)MG/3ML NEB HHN PRN ×5 (02:24→20:29)
[2020-12-11 03:53] VITALS: BP 105/71
[2020-12-11] MEDS: FUROSEMIDE 40MG/4ML VIAL IVP SCH ×2 (06:46→17:15)
[2020-12-11] MEDS: INSULIN LISPRO 100 UNITS/ML SUBCUT SCH ×4 (06:46→21:00)
[2020-12-11] MEDS: BLOOD SUGAR DIAGNOSTIC STRIP TEST SCH ×4 (06:46→21:16)
[2020-12-11] MEDS: FAMOTIDINE 20MG TABLET PO SCH (06:46)
[2020-12-11 07:06] LABS: BASOPHILS % 0.2 % (0.0-2.0); EOSINOPHILS % 0.8 % (0.0-5.0); HEMATOCRIT. 36.7 % (42.0-52.0); HEMOGLOBIN. 12.5 g/dL (14.0-18.0); LYMPHOCYTES % 15.3 % (20.0-50.0); MEAN CORPUSCULAR HEMOGLOBIN 27.6 pg (28.0-32.0); MONOCYTES % 3.7 % (2.0-8.0); PLATELET 235 x1000/uL (130-400); RED BLOOD CELL COUNT 4.53 mill/uL (4.7-6.1); RED CELL DISTRIBUTION WIDTH 17.1 % (11.6-14.6)
[2020-12-11 07:33] LABS: CHLORIDE 100 mEq/L (98-107)
[2020-12-11 07:38] LABS: HEPATITIS B SURFACE ANTIGEN NEGATIVE
[2020-12-11 07:57] VITALS: BP 97/68
[2020-12-11 08:07] LABS: HEPATITIS A AB IGM NEGATIVE (NEGATIVE)
[2020-12-11] MEDS: CARVEDILOL 6.25 MG TABLET PO SCH ×2 (08:51→20:11)
[2020-12-11] MEDS: LOSARTAN POTASSIUM 25 MG TABLET PO SCH (08:54)
[2020-12-11] MEDS: TAMSULOSIN HCL 0.4MG SR CAPSULE PO SCH (09:03)
[2020-12-11] MEDS: APIXABAN 5 MG TABLET PO SCH ×2 (09:03→17:15)
[2020-12-11] MEDS: POTASSIUM CHLORIDE 20MEQ TABLET SR PO SCH (09:03)
[2020-12-11 12:00] VITALS: BP 99/66
[2020-12-11 16:00] VITALS: BP 102/70
[2020-12-11 20:00] VITALS: BP 118/84
[2020-12-11] MEDS: HYDROCODONE/ACETAMINOPHEN 5/325MG TABLET PO PRN (20:11)
[2020-12-12] VITALS: BP 103/80
[2020-12-12 04:00] VITALS: BP 98/71
[2020-12-12] MEDS: HYDROCODONE/ACETAMINOPHEN 5/325MG TABLET PO PRN ×2 (05:37→17:31)
[2020-12-12] MEDS: BLOOD SUGAR DIAGNOSTIC STRIP TEST SCH ×4 (06:06→20:39)
[2020-12-12] MEDS: INSULIN LISPRO 100 UNITS/ML SUBCUT SCH ×4 (06:06→20:39)
[2020-12-12] MEDS: FAMOTIDINE 20MG TABLET PO SCH (06:15)
[2020-12-12] MEDS: FUROSEMIDE 40MG/4ML VIAL IVP SCH ×2 (06:15→17:30)
[2020-12-12 07:31] LABS: BASOPHILS % 0.3 % (0.0-2.0); EOSINOPHILS % 1.5 % (0.0-5.0); HEMATOCRIT. 38.5 % (42.0-52.0); HEMOGLOBIN. 13.1 g/dL (14.0-18.0); LYMPHOCYTES % 13.8 % (20.0-50.0); MEAN CORPUSCULAR HEMOGLOBIN 27.4 pg (28.0-32.0); MEAN CORPUSCULAR VOLUME 80.9 fL (80.0-94.0); MEAN PLATELET VOLUME 9.8 fl (7.4-10.4); MONOCYTES % 4.4 % (2.0-8.0); PLATELET 250 x1000/uL (130-400); RED BLOOD CELL COUNT 4.76 mill/uL (4.7-6.1); RED CELL DISTRIBUTION WIDTH 17.2 % (11.6-14.6)
[2020-12-12 07:32] LABS: CHLORIDE 99 mEq/L (98-107)
[2020-12-12 08:00] VITALS: BP 97/68
[2020-12-12] MEDS: LOSARTAN POTASSIUM 25 MG TABLET PO SCH (09:00)
[2020-12-12] MEDS: CARVEDILOL 6.25 MG TABLET PO SCH ×2 (09:00→20:39)
[2020-12-12] MEDS: APIXABAN 5 MG TABLET PO SCH ×2 (09:35→17:30)
[2020-12-12] MEDS: POTASSIUM CHLORIDE 20MEQ TABLET SR PO SCH (09:35)
[2020-12-12] MEDS: TAMSULOSIN HCL 0.4MG SR CAPSULE PO SCH (09:36)
[2020-12-12 12:00] VITALS: BP 108/78
[2020-12-12] MEDS: IPRATROPIUM/ALBUTEROL 0.5-3(2.5)MG/3ML NEB HHN PRN (12:32)
[2020-12-12] MEDS: SODIUM CHLORIDE 0.9% 1,000 ML IV SCH (12:45)
[2020-12-12] MEDS ORDERED: IOHEXOL-350 100 ML BOTTLE ONE (14:18)
[2020-12-12 16:00] VITALS: BP 104/75
[2020-12-12 20:00] VITALS: BP 142/94
[2020-12-13] VITALS: BP 105/75
[2020-12-13] MEDS: HYDROCODONE/ACETAMINOPHEN 5/325MG TABLET PO PRN (00:43)
[2020-12-13 04:00] VITALS: BP 96/72
[2020-12-13] MEDS: SODIUM CHLORIDE 0.9% 1,000 ML IV SCH ×2 (05:05→21:57)
[2020-12-13 05:36] LABS: CHLORIDE 100 mEq/L (98-107)
[2020-12-13 05:44] LABS: BASOPHILS % 0.6 % (0.0-2.0); EOSINOPHILS % 1.6 % (0.0-5.0); HEMATOCRIT. 35.8 % (42.0-52.0); LYMPHOCYTES % 15.1 % (20.0-50.0); MEAN CORPUSCULAR HEMOGLOBIN 27.2 pg (28.0-32.0); MEAN CORPUSCULAR VOLUME 80.9 fL (80.0-94.0); MEAN PLATELET VOLUME 9.5 fl (7.4-10.4); MONOCYTES % 4.3 % (2.0-8.0); NEUTROPHILS % 78.4 % (40.0-76.0); PLATELET 246 x1000/uL (130-400); RED BLOOD CELL COUNT 4.42 mill/uL (4.7-6.1); RED CELL DISTRIBUTION WIDTH 17.2 % (11.6-14.6)
[2020-12-13] MEDS: BLOOD SUGAR DIAGNOSTIC STRIP TEST SCH ×4 (05:57→21:42)
[2020-12-13] MEDS: FAMOTIDINE 20MG TABLET PO SCH (06:15)
[2020-12-13] MEDS: INSULIN LISPRO 100 UNITS/ML SUBCUT SCH ×4 (06:15→21:55)
[2020-12-13] MEDS: FUROSEMIDE 40MG/4ML VIAL IVP SCH ×2 (06:18→17:04)
[2020-12-13] MEDS: ONDANSETRON HCL 4MG/2ML INJ IV PRN (07:40)
[2020-12-13 08:00] VITALS: BP 109/74
[2020-12-13] MEDS: CARVEDILOL 6.25 MG TABLET PO SCH ×2 (08:50→21:00)
[2020-12-13] MEDS: TAMSULOSIN HCL 0.4MG SR CAPSULE PO SCH (08:51)
[2020-12-13] MEDS: APIXABAN 5 MG TABLET PO SCH ×2 (08:51→17:04)
[2020-12-13] MEDS: LOSARTAN POTASSIUM 25 MG TABLET PO SCH (08:51)
[2020-12-13] MEDS: POTASSIUM CHLORIDE 20MEQ TABLET SR PO SCH (08:51)
[2020-12-13] MEDS: GUAIFENESIN/CODEINE 200-20MG/10ML UDC PO PRN (08:52)
[2020-12-13 12:00] VITALS: BP 104/77
[2020-12-13] MEDS: IPRATROPIUM/ALBUTEROL 0.5-3(2.5)MG/3ML NEB HHN PRN (14:36)
[2020-12-13 16:00] VITALS: BP 104/81
[2020-12-13 20:00] VITALS: BP 102/77
[2020-12-14] VITALS: BP_SYST 102; BP_SYST 170; BP_DIAS 76; BP_DIAS 77
[2020-12-14] MEDS: GUAIFENESIN/CODEINE 200-20MG/10ML UDC PO PRN ×3 (00:05→21:11)
[2020-12-14 04:00] VITALS: BP 105/75
[2020-12-14] MEDS: FAMOTIDINE 20MG TABLET PO SCH (06:29)
[2020-12-14] MEDS: FUROSEMIDE 40MG/4ML VIAL IVP SCH ×2 (06:29→16:39)
[2020-12-14] MEDS: BLOOD SUGAR DIAGNOSTIC STRIP TEST SCH ×4 (06:29→20:50)
[2020-12-14] MEDS: INSULIN LISPRO 100 UNITS/ML SUBCUT SCH ×4 (06:43→20:55)
[2020-12-14 08:00] VITALS: BP 100/69
[2020-12-14] MEDS: CARVEDILOL 6.25 MG TABLET PO SCH ×2 (08:42→20:10)
[2020-12-14] MEDS: APIXABAN 5 MG TABLET PO SCH ×2 (08:59→16:39)
[2020-12-14] MEDS: POTASSIUM CHLORIDE 20MEQ TABLET SR PO SCH (09:00)
[2020-12-14] MEDS: LOSARTAN POTASSIUM 25 MG TABLET PO SCH (09:00)
[2020-12-14] MEDS: TAMSULOSIN HCL 0.4MG SR CAPSULE PO SCH (09:00)
[2020-12-14] MEDS: HYDROCODONE/ACETAMINOPHEN 5/325MG TABLET PO PRN (09:12)
[2020-12-14 12:00] VITALS: BP 99/71
[2020-12-14 16:00] VITALS: BP 95/60
[2020-12-14 20:00] VITALS: BP 112/72
[2020-12-15] VITALS: BP 89/61
[2020-12-15] MEDS: HYDROCODONE/ACETAMINOPHEN 5/325MG TABLET PO PRN (00:01)
[2020-12-15 04:00] VITALS: BP 83/55
[2020-12-15] MEDS: FUROSEMIDE 40MG/4ML VIAL IVP SCH (06:15)
[2020-12-15] MEDS: FAMOTIDINE 20MG TABLET PO SCH (06:15)
[2020-12-15] MEDS: INSULIN LISPRO 100 UNITS/ML SUBCUT SCH ×4 (06:15→19:43)
[2020-12-15] MEDS: BLOOD SUGAR DIAGNOSTIC STRIP TEST SCH ×4 (06:15→19:43)
[2020-12-15 08:00] VITALS: BP 96/68
[2020-12-15] MEDS: CARVEDILOL 6.25 MG TABLET PO SCH ×3 (08:39→21:50)
[2020-12-15] MEDS: APIXABAN 5 MG TABLET PO SCH ×2 (08:39→16:39)
[2020-12-15] MEDS: LOSARTAN POTASSIUM 25 MG TABLET PO SCH (08:39)
[2020-12-15] MEDS: POTASSIUM CHLORIDE 20MEQ TABLET SR PO SCH (08:39)
[2020-12-15] MEDS: TAMSULOSIN HCL 0.4MG SR CAPSULE PO SCH (08:39)
[2020-12-15 12:00] VITALS: BP 90/60
[2020-12-15 16:00] VITALS: BP 86/59
[2020-12-15] MEDS: TRAMADOL 50MG TABLET PO PRN (16:28)
[2020-12-15] MEDS: MIDODRINE HCL 5MG TABLET PO SCH (16:39)
[2020-12-15 20:00] VITALS: BP 92/60
[2020-12-15] MEDS: FUROSEMIDE 40MG TABLET PO SCH (21:51)
[2020-12-16] VITALS: BP 89/56
[2020-12-16 04:00] VITALS: BP 88/61
[2020-12-16] MEDS: TRAMADOL 50MG TABLET PO PRN (04:18)
[2020-12-16] MEDS: BLOOD SUGAR DIAGNOSTIC STRIP TEST SCH ×4 (05:55→21:00)
[2020-12-16] MEDS: FAMOTIDINE 20MG TABLET PO SCH (05:55)
[2020-12-16] MEDS: INSULIN LISPRO 100 UNITS/ML SUBCUT SCH ×4 (06:18→21:00)
[2020-12-16 08:00] VITALS: BP 93/66
[2020-12-16] MEDS: CARVEDILOL 6.25 MG TABLET PO SCH ×2 (09:00→21:00)
[2020-12-16] MEDS: POTASSIUM CHLORIDE 20MEQ TABLET SR PO SCH (09:42)
[2020-12-16] MEDS: MIDODRINE HCL 5MG TABLET PO SCH ×3 (09:42→16:37)
[2020-12-16] MEDS: TAMSULOSIN HCL 0.4MG SR CAPSULE PO SCH (09:42)
[2020-12-16] MEDS: FUROSEMIDE 40MG TABLET PO SCH ×2 (09:42→22:06)
[2020-12-16] MEDS: APIXABAN 5 MG TABLET PO SCH ×2 (09:42→16:37)
[2020-12-16] MEDS: LOSARTAN POTASSIUM 25 MG TABLET PO SCH (09:42)
[2020-12-16 12:00] VITALS: BP 89/98
[2020-12-16 16:00] VITALS: BP 87/60
[2020-12-16 20:00] VITALS: BP 100/71
[2020-12-17] VITALS: BP 87/59
[2020-12-17 04:00] VITALS: BP 113/72
[2020-12-17] MEDS: TRAMADOL 50MG TABLET PO PRN (04:06)
[2020-12-17] MEDS: FAMOTIDINE 20MG TABLET PO SCH (06:28)
[2020-12-17] MEDS: BLOOD SUGAR DIAGNOSTIC STRIP TEST SCH ×4 (06:29→20:38)
[2020-12-17] MEDS: INSULIN LISPRO 100 UNITS/ML SUBCUT SCH ×4 (06:49→21:00)
[2020-12-17 08:00] VITALS: BP 102/72
[2020-12-17] MEDS: LOSARTAN POTASSIUM 25 MG TABLET PO SCH (09:00)
[2020-12-17] MEDS: CARVEDILOL 6.25 MG TABLET PO SCH ×2 (09:00→21:00)
[2020-12-17] MEDS: APIXABAN 5 MG TABLET PO SCH ×2 (09:13→17:30)
[2020-12-17] MEDS: POTASSIUM CHLORIDE 20MEQ TABLET SR PO SCH (09:13)
[2020-12-17] MEDS: FUROSEMIDE 40MG TABLET PO SCH ×2 (09:14→21:21)
[2020-12-17] MEDS: TAMSULOSIN HCL 0.4MG SR CAPSULE PO SCH (09:14)
[2020-12-17] MEDS: MIDODRINE HCL 5MG TABLET PO SCH ×3 (09:14→17:29)
[2020-12-17 12:00] VITALS: BP 98/71
[2020-12-17 20:00] VITALS: BP 102/70
[2020-12-18] VITALS: BP 93/62
[2020-12-18 04:00] VITALS: BP 98/64
[2020-12-18] MEDS: BLOOD SUGAR DIAGNOSTIC STRIP TEST SCH ×4 (05:45→20:31)
[2020-12-18] MEDS: FAMOTIDINE 20MG TABLET PO SCH (05:53)
[2020-12-18] MEDS: INSULIN LISPRO 100 UNITS/ML SUBCUT SCH ×4 (06:43→20:31)
[2020-12-18 08:00] VITALS: BP 104/72
[2020-12-18] MEDS: POTASSIUM CHLORIDE 20MEQ TABLET SR PO SCH (08:41)
[2020-12-18] MEDS: MIDODRINE HCL 5MG TABLET PO SCH ×3 (08:41→17:21)
[2020-12-18] MEDS: TAMSULOSIN HCL 0.4MG SR CAPSULE PO SCH (08:42)
[2020-12-18] MEDS: LOSARTAN POTASSIUM 25 MG TABLET PO SCH (08:42)
[2020-12-18] MEDS: CARVEDILOL 6.25 MG TABLET PO SCH ×2 (08:42→20:30)
[2020-12-18] MEDS: APIXABAN 5 MG TABLET PO SCH ×2 (08:42→17:21)
[2020-12-18] MEDS: FUROSEMIDE 40MG TABLET PO SCH ×2 (08:42→20:57)
[2020-12-18] MEDS: TRAMADOL 50MG TABLET PO PRN ×2 (11:46→20:58)
[2020-12-18 12:00] VITALS: BP 107/67
[2020-12-18 16:00] VITALS: BP 112/80
[2020-12-18 20:00] VITALS: BP 107/75
[2020-12-18] MEDS: GUAIFENESIN/CODEINE 200-20MG/10ML UDC PO PRN (21:43)
[2020-12-19] VITALS (7 sets, daily range): BP systolic 99–135; BP diastolic 55–94
[2020-12-19] MEDS: BLOOD SUGAR DIAGNOSTIC STRIP TEST SCH ×4 (05:58→21:00)
[2020-12-19] MEDS: FAMOTIDINE 20MG TABLET PO SCH (06:02)
[2020-12-19] MEDS: ONDANSETRON HCL 4MG/2ML INJ IV PRN ×2 (07:02→20:18)
[2020-12-19] MEDS: INSULIN LISPRO 100 UNITS/ML SUBCUT SCH ×4 (07:15→21:00)
[2020-12-19] MEDS: POTASSIUM CHLORIDE 20MEQ TABLET SR PO SCH (08:49)
[2020-12-19] MEDS: MIDODRINE HCL 5MG TABLET PO SCH ×3 (08:49→16:59)
[2020-12-19] MEDS: TAMSULOSIN HCL 0.4MG SR CAPSULE PO SCH (08:49)
[2020-12-19] MEDS: FUROSEMIDE 40MG TABLET PO SCH ×2 (08:49→20:10)
[2020-12-19] MEDS: APIXABAN 5 MG TABLET PO SCH ×2 (08:49→16:59)
[2020-12-19] MEDS: CARVEDILOL 6.25 MG TABLET PO SCH ×2 (08:50→20:09)
[2020-12-19] MEDS: LOSARTAN POTASSIUM 25 MG TABLET PO SCH (08:50)
[2020-12-19] MEDS: GUAIFENESIN/CODEINE 200-20MG/10ML UDC PO PRN (10:57)
[2020-12-19 13:04] LABS: BASOPHILS % 1.2 % (0.0-2.0); EOSINOPHILS % 1.4 % (0.0-5.0); HEMATOCRIT. 32.6 % (42.0-52.0); LYMPHOCYTES % 23.1 % (20.0-50.0); MEAN CORPUSCULAR HEMOGLOBIN 27.5 pg (28.0-32.0); MEAN CORPUSCULAR VOLUME 81.6 fL (80.0-94.0); MEAN PLATELET VOLUME 9.1 fl (7.4-10.4); MONOCYTES % 5.8 % (2.0-8.0); NEUTROPHILS % 68.5 % (40.0-76.0); PLATELET 307 x1000/uL (130-400); RED CELL DISTRIBUTION WIDTH 17.9 % (11.6-14.6)
[2020-12-19 13:13] LABS: CHLORIDE 100 mEq/L (98-107)
[2020-12-19] MEDS: TRAMADOL 50MG TABLET PO PRN (20:18)
[2020-12-19 21:52] LABS: CLARITY URINE CLEAR (CLEAR); COLOR URINE YELLOW (YELLOW); KETONES URINE NEGATIVE (NEGATIVE); LEUKOCYTE ESTERASE URINE 1+ (NEGATIVE); NITRITE URINE NEGATIVE (NEGATIVE); OCCULT BLOOD URINE 1+ (NEGATIVE); PROTEIN URINE 1+ (NEGATIVE); SPECIFIC GRAVITY URINE 1.019 (1.005-1.030); UROBILINOGEN URINE 0.2 E.U./dL (0.2-1.0)
[2020-12-20 04:00] VITALS: BP 106/77
[2020-12-20] MEDS: BLOOD SUGAR DIAGNOSTIC STRIP TEST SCH ×4 (05:55→21:00)
[2020-12-20] MEDS: FAMOTIDINE 20MG TABLET PO SCH (05:55)
[2020-12-20] MEDS: INSULIN LISPRO 100 UNITS/ML SUBCUT SCH ×4 (06:21→21:00)
[2020-12-20 08:00] VITALS: BP 109/74
[2020-12-20] MEDS: CARVEDILOL 6.25 MG TABLET PO SCH ×2 (09:00→21:00)
[2020-12-20] MEDS: TAMSULOSIN HCL 0.4MG SR CAPSULE PO SCH (09:14)
[2020-12-20] MEDS: POTASSIUM CHLORIDE 20MEQ TABLET SR PO SCH (09:14)
[2020-12-20] MEDS: APIXABAN 5 MG TABLET PO SCH ×2 (09:14→17:35)
[2020-12-20] MEDS: LOSARTAN POTASSIUM 25 MG TABLET PO SCH (09:15)
[2020-12-20] MEDS: MIDODRINE HCL 5MG TABLET PO SCH ×3 (09:15→17:35)
[2020-12-20 12:00] VITALS: BP 92/63
[2020-12-20] MEDS: FUROSEMIDE 40MG TABLET PO SCH ×2 (14:12→21:00)
[2020-12-20] MEDS: TRAMADOL 50MG TABLET PO PRN (14:50)
[2020-12-20 16:00] VITALS: BP 106/69
[2020-12-20 19:59] VITALS: BP 97/69
[2020-12-21] VITALS: BP 96/64
[2020-12-21 04:00] VITALS: BP 98/74
[2020-12-21] MEDS: FAMOTIDINE 20MG TABLET PO SCH ×2 (06:27→08:45)
[2020-12-21 06:28] LABS: EOSINOPHILS % 2.3 % (0.0-5.0); HEMATOCRIT. 31.5 % (42.0-52.0); HEMOGLOBIN. 10.5 g/dL (14.0-18.0); LYMPHOCYTES % 24.1 % (20.0-50.0); MEAN CORPUSCULAR HEMOGLOBIN 26.9 pg (28.0-32.0); MEAN PLATELET VOLUME 9.6 fl (7.4-10.4); MONOCYTES % 6.4 % (2.0-8.0); NEUTROPHILS % 66.2 % (40.0-76.0); PLATELET 310 x1000/uL (130-400); RED BLOOD CELL COUNT 3.89 mill/uL (4.7-6.1); RED CELL DISTRIBUTION WIDTH 17.3 % (11.6-14.6)
[2020-12-21 06:56] LABS: CHLORIDE 99 mEq/L (98-107)
[2020-12-21] MEDS: BLOOD SUGAR DIAGNOSTIC STRIP TEST SCH ×4 (07:20→21:09)
[2020-12-21 08:00] VITALS: BP 91/67
[2020-12-21] MEDS: CARVEDILOL 6.25 MG TABLET PO SCH ×2 (08:38→21:00)
[2020-12-21] MEDS: TAMSULOSIN HCL 0.4MG SR CAPSULE PO SCH (08:46)
[2020-12-21] MEDS: APIXABAN 5 MG TABLET PO SCH ×2 (08:46→17:53)
[2020-12-21] MEDS: POTASSIUM CHLORIDE 20MEQ TABLET SR PO SCH (08:47)
[2020-12-21] MEDS: FUROSEMIDE 40MG TABLET PO SCH ×2 (08:47→21:08)
[2020-12-21] MEDS: MIDODRINE HCL 5MG TABLET PO SCH ×3 (08:47→17:53)
[2020-12-21] MEDS: INSULIN LISPRO 100 UNITS/ML SUBCUT SCH ×4 (08:48→21:00)
[2020-12-21] MEDS: LOSARTAN POTASSIUM 25 MG TABLET PO SCH (09:00)
[2020-12-21 12:00] VITALS: BP 106/65
[2020-12-21] MEDS ORDERED: HYDROCODONE/ACETAMINOPHEN 5/325MG TABLET PO PRN (13:00)
[2020-12-21 16:00] VITALS: BP 101/71
[2020-12-21] MEDS: ZOLPIDEM TARTRATE 5MG TABLET PO PRN (21:09)
[2020-12-22] MEDS: BLOOD SUGAR DIAGNOSTIC STRIP TEST SCH ×4 (07:38→21:39)
[2020-12-22] MEDS: INSULIN LISPRO 100 UNITS/ML SUBCUT SCH ×4 (07:50→21:00)
[2020-12-22] MEDS: CARVEDILOL 6.25 MG TABLET PO SCH ×2 (09:00→21:00)
[2020-12-22] MEDS: LOSARTAN POTASSIUM 25 MG TABLET PO SCH (09:00)
[2020-12-22] MEDS: MIDODRINE HCL 5MG TABLET PO SCH ×3 (09:19→17:00)
[2020-12-22] MEDS: FUROSEMIDE 40MG TABLET PO SCH ×2 (09:19→21:26)
[2020-12-22] MEDS: TAMSULOSIN HCL 0.4MG SR CAPSULE PO SCH (09:20)
[2020-12-22] MEDS: POTASSIUM CHLORIDE 20MEQ TABLET SR PO SCH (09:20)
[2020-12-22] MEDS: APIXABAN 5 MG TABLET PO SCH ×2 (09:21→17:00)
[2020-12-22] MEDS: IPRATROPIUM/ALBUTEROL 0.5-3(2.5)MG/3ML NEB HHN SCH ×2 (11:47→21:18)
[2020-12-22 12:55] LABS: BG BASE EXCESS -0.9 mmol/L (-2.0-2.0); BG CARBOXYHEMOGLOBIN 0.3 % (0.5-1.5); BG DEOXYHEMOGLOBIN 3.7 % (0.0-5.0); BG FRACTION INSPIRED OXYGEN 21; BG HCO3 ACT 20.5 mmol/L (22.0-26.0); BG METHEMOGLOBIN 0.1 % (0.0-1.5); BG OXYGEN SATURATION 96.3 % (92.0-98.5); BG OXYHEMOGLOBIN 95.9 % (94.0-97.0); BG PCO2 24.7 mmHg (35.0-45.0); BG PH 7.537 (7.350-7.450); BG PO2 76.1 mmHg (75.0-100.0); BG SAMPLE SITE RIGHT RADIAL; BG TOTAL HEMOGLOBIN 10.9 g/dL (12.0-18.0); BG VENT MODE ROOM AIR
[2020-12-22] MEDS ORDERED: LINEZOLID 600MG TABLET PO SCH (16:00)
[2020-12-22 20:00] VITALS: BP 105/65
[2020-12-22] MEDS: ZOLPIDEM TARTRATE 5MG TABLET PO PRN (21:26)
[2020-12-22] MEDS: LINEZOLID 600MG TABLET PO SCH (21:26)
[2020-12-22] MEDS: ACETAMINOPHEN 325MG TABLET PO PRN (21:38)
[2020-12-23] VITALS: BP 101/72
[2020-12-23] MEDS: IPRATROPIUM/ALBUTEROL 0.5-3(2.5)MG/3ML NEB HHN SCH ×6 (01:31→20:39)
[2020-12-23 04:00] VITALS: BP 107/76
[2020-12-23] MEDS: FAMOTIDINE 20MG TABLET PO SCH (06:32)
[2020-12-23] MEDS: BLOOD SUGAR DIAGNOSTIC STRIP TEST SCH ×4 (06:38→21:00)
[2020-12-23] MEDS: INSULIN LISPRO 100 UNITS/ML SUBCUT SCH ×5 (06:52→21:00)
[2020-12-23] MEDS: LOSARTAN POTASSIUM 25 MG TABLET PO SCH (09:00)
[2020-12-23] MEDS: CARVEDILOL 6.25 MG TABLET PO SCH ×2 (09:00→20:20)
[2020-12-23] MEDS: APIXABAN 5 MG TABLET PO SCH ×2 (09:23→18:04)
[2020-12-23] MEDS: LINEZOLID 600MG TABLET PO SCH ×2 (09:24→20:20)
[2020-12-23] MEDS: POTASSIUM CHLORIDE 20MEQ TABLET SR PO SCH (09:24)
[2020-12-23] MEDS: MIDODRINE HCL 5MG TABLET PO SCH ×3 (09:24→18:04)
[2020-12-23] MEDS: FUROSEMIDE 40MG TABLET PO SCH ×2 (09:24→20:20)
[2020-12-23] MEDS: TAMSULOSIN HCL 0.4MG SR CAPSULE PO SCH (09:25)
[2020-12-23] MEDS ORDERED: FUROSEMIDE 40MG/4ML VIAL IVP SCH (12:30)
[2020-12-23] MEDS: ACETAMINOPHEN 325MG TABLET PO PRN (18:05)
[2020-12-23] MEDS ORDERED: PIPERACILLIN/TAZOBACTAM 3.375GM/50ML PREMIX IV SCH (19:45)
[2020-12-23 20:00] VITALS: BP 110/79
[2020-12-23] MEDS ORDERED: MORPHINE SULFATE 4 MG/ML CPJ (NOT FOR IM USE) IV NR (20:00)
[2020-12-23] MEDS: PIPERACILLIN/TAZOBACTAM 3.375G in DEXT 5% WATER 50ML IV SCH (22:19)
[2020-12-24] VITALS: BP 103/75
[2020-12-24] MEDS: IPRATROPIUM/ALBUTEROL 0.5-3(2.5)MG/3ML NEB HHN SCH ×3 (02:09→14:21)
[2020-12-24] MEDS: PIPERACILLIN/TAZOBACTAM 3.375G in DEXT 5% WATER 50ML IV SCH ×4 (02:28→20:45)
[2020-12-24 04:00] VITALS: BP 91/72
[2020-12-24 06:29] LABS: CHLORIDE 99 mEq/L (98-107)
[2020-12-24 06:44] LABS: BASOPHILS % 0.5 % (0.0-2.0); EOSINOPHILS % 1.1 % (0.0-5.0); HEMATOCRIT. 29.6 % (42.0-52.0); HEMOGLOBIN. 9.9 g/dL (14.0-18.0); LYMPHOCYTES % 17.6 % (20.0-50.0); MEAN CORPUSCULAR HEMOGLOBIN 26.6 pg (28.0-32.0); MEAN CORPUSCULAR VOLUME 79.8 fL (80.0-94.0); MEAN PLATELET VOLUME 9.8 fl (7.4-10.4); MONOCYTES % 6.6 % (2.0-8.0); NEUTROPHILS % 74.2 % (40.0-76.0); PLATELET 294 x1000/uL (130-400); RED CELL DISTRIBUTION WIDTH 17.9 % (11.6-14.6)
[2020-12-24] MEDS: FAMOTIDINE 20MG TABLET PO SCH (06:45)
[2020-12-24] MEDS: BLOOD SUGAR DIAGNOSTIC STRIP TEST SCH ×4 (06:46→21:05)
[2020-12-24] MEDS: INSULIN LISPRO 100 UNITS/ML SUBCUT SCH ×4 (07:50→21:00)
[2020-12-24 08:00] VITALS: BP 99/77
[2020-12-24] MEDS: LOSARTAN POTASSIUM 25 MG TABLET PO SCH (09:00)
[2020-12-24] MEDS: CARVEDILOL 6.25 MG TABLET PO SCH ×2 (09:00→21:00)
[2020-12-24] MEDS: FUROSEMIDE 40MG TABLET PO SCH ×2 (09:00→21:00)
[2020-12-24] MEDS: LINEZOLID 600MG TABLET PO SCH ×2 (09:17→20:47)
[2020-12-24] MEDS: MIDODRINE HCL 5MG TABLET PO SCH ×3 (09:18→17:06)
[2020-12-24] MEDS: APIXABAN 5 MG TABLET PO SCH ×2 (09:18→17:06)
[2020-12-24] MEDS: TAMSULOSIN HCL 0.4MG SR CAPSULE PO SCH (09:18)
[2020-12-24] MEDS: POTASSIUM CHLORIDE 20MEQ TABLET SR PO SCH (09:18)
[2020-12-24 12:00] VITALS: BP 95/54
[2020-12-24] MEDS ORDERED: HALOPERIDOL LACTATE 5MG/ML VIAL IM PRN (12:15)
[2020-12-24] MEDS ORDERED: LORAZEPAM 2MG/ML CPJ IV NR (12:15)
[2020-12-24] MEDS: FINASTERIDE 5MG TABLET PO SCH (12:28)
[2020-12-24] MEDS: GUAIFENESIN/CODEINE 200-20MG/10ML UDC PO PRN ×2 (12:41→20:45)
[2020-12-24 16:00] VITALS: BP 112/82
[2020-12-24 20:00] VITALS: BP 93/58
[2020-12-24] MEDS: ACETAMINOPHEN 325MG TABLET PO PRN (20:46)
[2020-12-25] VITALS (7 sets, daily range): BP systolic 88–122; BP diastolic 57–68
[2020-12-25] MEDS: PIPERACILLIN/TAZOBACTAM 3.375G in DEXT 5% WATER 50ML IV SCH ×4 (05:05→21:14)
[2020-12-25] MEDS: BLOOD SUGAR DIAGNOSTIC STRIP TEST SCH ×4 (07:42→21:00)
[2020-12-25] MEDS: INSULIN LISPRO 100 UNITS/ML SUBCUT SCH ×4 (07:50→21:00)
[2020-12-25] MEDS: IPRATROPIUM/ALBUTEROL 0.5-3(2.5)MG/3ML NEB HHN SCH ×3 (08:56→21:15)
[2020-12-25] MEDS: TAMSULOSIN HCL 0.4MG SR CAPSULE PO SCH (09:00)
[2020-12-25] MEDS: LOSARTAN POTASSIUM 25 MG TABLET PO SCH (09:00)
[2020-12-25] MEDS: CARVEDILOL 6.25 MG TABLET PO SCH ×2 (09:00→21:15)
[2020-12-25] MEDS: LINEZOLID 600MG TABLET PO SCH ×2 (09:25→23:23)
[2020-12-25] MEDS: FINASTERIDE 5MG TABLET PO SCH (09:25)
[2020-12-25] MEDS: MIDODRINE HCL 5MG TABLET PO SCH ×3 (09:25→16:34)
[2020-12-25] MEDS: APIXABAN 5 MG TABLET PO SCH ×2 (09:25→16:35)
[2020-12-25] MEDS: POTASSIUM CHLORIDE 20MEQ TABLET SR PO SCH (09:25)
[2020-12-25] MEDS: FAMOTIDINE 20MG TABLET PO SCH (09:25)
[2020-12-25] MEDS: FUROSEMIDE 40MG TABLET PO SCH ×2 (09:25→21:15)
[2020-12-25] MEDS: GUAIFENESIN/CODEINE 200-20MG/10ML UDC PO PRN ×2 (12:10→23:25)
[2020-12-26] VITALS: BP 87/63
== END 2020-12-26 04:15 | DRG 720 ==
LOC: ER 18:44 → 7WST 12-04 00:11 → ENRESERV 12-04 00:28 → 7WST 12-04 02:06 → 5WST 12-04 21:18 → 6EST 12-20 20:42
PROVIDERS: ADMIT Internal Medicine; ATTEND Internal Medicine
DX: A41.9 Sepsis, unspecified organism (principal); J96.01 Acute respiratory failure with hypoxia; N17.0 Acute kidney failure with tubular necrosis; I50.23 Acute on chronic systolic (congestive) heart failure; E44.0 Moderate protein-calorie malnutrition; D68.9 Coagulation defect, unspecified; J18.9 Pneumonia, unspecified organism; I42.9 Cardiomyopathy, unspecified; I11.0 Hypertensive heart disease with heart failure; J44.0 Chronic obstructive pulmonary disease with (acute) lower respiratory infection; D50.9 Iron deficiency anemia, unspecified; J44.1 Chronic obstructive pulmonary disease with (acute) exacerbation; R74.01 Elevation of levels of liver transaminase levels; R65.20 Severe sepsis without septic shock; N40.0 Benign prostatic hyperplasia without lower urinary tract symptoms; N39.0 Urinary tract infection, site not specified; E87.6 Hypokalemia; K83.8 Other specified diseases of biliary tract; K75.9 Inflammatory liver disease, unspecified; K74.60 Unspecified cirrhosis of liver; F14.10 Cocaine abuse, uncomplicated; Z20.822 Contact with and (suspected) exposure to COVID-19; Z60.2 Problems related to living alone; Z82.49 Family history of ischemic heart disease and other diseases of the circulatory system; Z68.21 Body mass index [BMI] 21.0-21.9, adult; Z83.3 Family history of diabetes mellitus; Z86.16 Personal history of COVID-19; Z87.891 Personal history of nicotine dependence; Z91.14 Patient's other noncompliance with medication regimen; Z99.81 Dependence on supplemental oxygen; Z88.8 Allergy status to other drugs, medicaments and biological substances; Z79.899 Other long term (current) drug therapy
CPT/HCPCS: 36415; 36600; 71045; 71275; 74176; 74181; 76705; 80048; 80053; 80076; 80202; 80305; 80320; 81003; 82375; 82550; 82728; 82805; 82962; 83036; 83605; 83615; 83880; 84145; 84153; 84484; 85025; 85379; 85384; 86140; 86705; 86709; 86803; 87077; 87186; 87340; 93005; 94640; 97110; 97116; 97162; 99291; A6261; J1815; J1940; J2060; J2270; J2405; J2543; J2920; J3370; J7030; J7040; J7042; J7060; J7512; Q9967; U0003; U0005; A4315; G0103; G0480